=== PATIENT | male | born 1935 | race Two or more races ===

== ENCOUNTER 2023-08-31 22:23 | Inpatient (IN) | payer MEDICARE ==
[~2023-08-31] VITALS: Ht 185.4 cm; Wt 89.8 kg
[2023-08-31 22:23] VITALS: BP 112/74; PULSE 91; RESP 19; TEMP 97
[~2023-08-31 22:23] MED LIST: APIX2.5T PO; ESCI20TA37 PO; FURO80TA3 PO; LIPA1CAP18 PO; METO25TA6 PO; POTA8TAB70 PO; SIMV10TA97 PO; SPIR25TA6 PO; TAMS-11 PO; WARF6TAB48 PO
[2023-08-31] MEDS ORDERED: MAGNESIUM/ALUMINUM HYDROXIDE/SIMETHICONE 30ML UDC PO PRN (23:30)
[2023-08-31] MEDS ORDERED: GUAIFENESIN 200MG/10ML SUGAR FREE UDC PO PRN (23:30)
[2023-08-31] MEDS: SODIUM CHLORIDE 0.9% 1,000 ML IV SCH (23:30)
[2023-08-31] MEDS ORDERED: CLONIDINE 0.1MG TABLET PO PRN (23:30)
[2023-08-31] MEDS ORDERED: IPRATROPIUM/ALBUTEROL 0.5-3(2.5)MG/3ML NEB HHN PRN (23:30)
[2023-09-01] MEDS ORDERED: DEXTROSE 50% WATER 50ML SYRINGE IV PRN ×2 (00:15→07:45)
[2023-09-01] MEDS: CEFTRIAXONE 1GM/50ML 50 ML IV SCH (05:14)
[2023-09-01 06:24] LABS: BASOPHILS % 0.4 % (0.0-2.0); EOSINOPHILS % 3.9 % (0.0-5.0); HEMATOCRIT. 41.4 % (42.0-52.0); LYMPHOCYTES % 14.1 % (20.0-50.0); MEAN CORPUSCULAR HEMOGLOBIN 30.3 pg (28.0-32.0); MEAN CORPUSCULAR HGB CONC 33.8 g/dL (31.0-37.0); MEAN CORPUSCULAR VOLUME 89.7 fL (80.0-94.0); MEAN PLATELET VOLUME 10.1 fl (7.4-10.4); MONOCYTES % 14.6 % (2.0-8.0); PLATELET 140 x1000/uL (130-400); RED BLOOD CELL COUNT 4.61 mill/uL (4.7-6.1); RED CELL DISTRIBUTION WIDTH 15.7 % (11.6-14.6); WHITE BLOOD COUNT 6.8 x1000/uL (4.5-11.0)
[2023-09-01 06:50] LABS: CHLORIDE 108 mEq/L (98-107); POTASSIUM 3.5 mEq/L (3.5-5.1); SODIUM 140 mEq/L (136-145)
[2023-09-01 06:53] LABS: CALCIUM 8.3 mg/dL (8.7-10.4); CARBON DIOXIDE 25 mEq/L (21-32)
[2023-09-01 06:58] LABS: CREATININE 1.6 mg/dL (0.6-1.3); GLUCOSE 114 mg/dL (70-105); UREA NITROGEN BLOOD 13 mg/dL (9-23)
[2023-09-01 06:59] LABS: ALANINE AMINOTRANSFERASE < 7 IU/L (10-49)
[2023-09-01 07:00] LABS: ALBUMIN 2.9 g/dL (3.2-4.8); ASPARTATE AMINOTRANSFERASE 12 IU/L (<34); PREALBUMIN 11.5 mg/dl (10.0-40.0)
[2023-09-01 07:01] LABS: BILIRUBIN TOTAL 0.8 mg/dL (0.1-1.0); PROTEIN TOTAL 4.9 g/dL (6.0-8.3)
[2023-09-01 08:00] VITALS: BP 113/60; PULSE 65; RESP 18; TEMP 97.6
[2023-09-01 08:10] LABS: CLARITY URINE CLEAR (CLEAR); COLOR URINE YELLOW (YELLOW); GLUCOSE URINE NEGATIVE (NEGATIVE); KETONES URINE NEGATIVE (NEGATIVE); LEUKOCYTE ESTERASE URINE 3+ (NEGATIVE); NITRITE URINE NEGATIVE (NEGATIVE); OCCULT BLOOD URINE 3+ (NEGATIVE); PROTEIN URINE 1+ (NEGATIVE); SPECIFIC GRAVITY URINE 1.008 (1.005-1.030); UROBILINOGEN URINE 0.2 E.U./dL (0.2-1.0)
[2023-09-01 08:29] LABS: SQUAMOUS EPITHELIAL CELL URINE NONE SEEN /lpf (RARE/1+)
[2023-09-01 08:31] LABS: BACTERIA URINE TRACE
[2023-09-01 08:32] LABS: RBC URINE 25-50 /hpf (0-2)
[2023-09-01] MEDS: PANTOPRAZOLE SODIUM 40 MG/VIAL IV SCH (08:47)
[2023-09-01] MEDS: POTASSIUM CHLORIDE 20MEQ TABLET SR PO SCH (08:48)
[2023-09-01] MEDS: TAMSULOSIN HCL 0.4MG SR CAPSULE PO SCH (08:48)
[2023-09-01] MEDS: FINASTERIDE 5MG TABLET PO SCH (08:48)
[2023-09-01] MEDS: FUROSEMIDE 40MG TABLET PO SCH (08:48)
[2023-09-01] MEDS: MAGNESIUM OXIDE 400MG TABLET PO SCH (08:48)
[2023-09-01] MEDS: APIXABAN 2.5 MG TABLET PO SCH (08:56)
[2023-09-01] MEDS: ONDANSETRON HCL 4MG/2ML INJ IV PRN (11:10)
[2023-09-01] MEDS: BLOOD SUGAR DIAGNOSTIC STRIP TEST SCH (12:03)
[2023-09-01 14:30] VITALS: BP 97/74; PULSE 70; RESP 19
[2023-09-01 20:00] VITALS: BP 132/77; PULSE 49; RESP 18; TEMP 96.6
[2023-09-01] MEDS ORDERED: PANTOPRAZOLE SODIUM 40 MG/VIAL IV SCH (21:00)
[2023-09-01] MEDS: PANTOPRAZOLE 40MG DR TABLET PO SCH (21:38)
[2023-09-02 06:26] LABS: CHLORIDE 110 mEq/L (98-107); POTASSIUM 3.8 mEq/L (3.5-5.1); SODIUM 142 mEq/L (136-145)
[2023-09-02 06:27] LABS: CALCIUM 8.1 mg/dL (8.7-10.4); CARBON DIOXIDE 26 mEq/L (21-32)
[2023-09-02 06:31] LABS: AMMONIA 34 uMol/L (<32); IRON 42 ug/dL (65-175)
[2023-09-02 06:32] LABS: CREATININE 1.5 mg/dL (0.6-1.3); GLUCOSE 96 mg/dL (70-105); UREA NITROGEN BLOOD 14 mg/dL (9-23)
[2023-09-02 06:33] LABS: PROTEIN TOTAL 4.9 g/dL (6.0-8.3)
[2023-09-02 06:34] LABS: ALANINE AMINOTRANSFERASE < 7 IU/L (10-49); ALBUMIN 3.1 g/dL (3.2-4.8); ASPARTATE AMINOTRANSFERASE 11 IU/L (<34); BILIRUBIN TOTAL 0.6 mg/dL (0.1-1.0); TOTAL IRON BINDING CAPACITY 183 ug/dl (250-425)
[2023-09-02 06:36] LABS: THYROID STIMULATING HORMONE 1.45 uIU/mL (0.55-4.78)
[2023-09-02 06:39] LABS: BASOPHILS % 0.5 % (0.0-2.0); EOSINOPHILS % 4.5 % (0.0-5.0); HEMATOCRIT. 41.3 % (42.0-52.0); HEMOGLOBIN. 13.9 g/dL (14.0-18.0); LYMPHOCYTES % 14.7 % (20.0-50.0); MEAN CORPUSCULAR HEMOGLOBIN 30.5 pg (28.0-32.0); MEAN CORPUSCULAR HGB CONC 33.8 g/dL (31.0-37.0); MEAN CORPUSCULAR VOLUME 90.4 fL (80.0-94.0); MEAN PLATELET VOLUME 10.2 fl (7.4-10.4); MONOCYTES % 12.6 % (2.0-8.0); NEUTROPHILS % 67.7 % (40.0-76.0); PLATELET 128 x1000/uL (130-400); RED BLOOD CELL COUNT 4.57 mill/uL (4.7-6.1); RED CELL DISTRIBUTION WIDTH 15.8 % (11.6-14.6); WHITE BLOOD COUNT 6.1 x1000/uL (4.5-11.0)
[2023-09-02 06:51] LABS: FERRITIN 47 ng/mL (22-322)
[2023-09-02 06:52] LABS: FOLIC ACID (FOLATE) SERUM 6.07 ng/mL (>5.38); VITAMIN B12 SERUM 569 pg/mL (211-911)
[2023-09-02 08:00] VITALS: BP 121/72; PULSE 68; RESP 18; TEMP 97.8
[2023-09-02] MEDS: LACTULOSE 20G/30ML UDC PO SCH (17:21)
[2023-09-02] MEDS: VANCOMYCIN 2,000 MG in DEXT 5% WATER 500 ML IV SCH (19:35)
[2023-09-02 20:00] VITALS: BP 104/68; PULSE 74; RESP 19; TEMP 98
[2023-09-03 06:55] LABS: AMMONIA 27 uMol/L (<32)
[2023-09-03 07:31] LABS: POTASSIUM 3.5 mEq/L (3.5-5.1)
[2023-09-03 07:37] LABS: CREATININE 1.3 mg/dL (0.6-1.3)
[2023-09-03 08:00] VITALS: BP 122/81; PULSE 70; RESP 18; TEMP 97.2
[2023-09-03 15:24] VITALS: PULSE 70; RESP 19
[2023-09-03 20:00] VITALS: BP 114/67; PULSE 83; RESP 19; TEMP 97.3
[2023-09-03] MEDS ORDERED: VANCOMYCIN 1GM/200ML PMX (BAXTER) IV SCH (20:00)
[2023-09-03] MEDS: VANCOMYCIN 1.25GM PMX (XELLIA) 250 ML IV SCH (21:04)
[2023-09-04 08:00] VITALS: BP 113/43; PULSE 68; RESP 20; TEMP 97.7
[2023-09-04 20:00] VITALS: BP 109/64; PULSE 63; RESP 17; TEMP 98.1
[2023-09-05 07:28] LABS: POTASSIUM 3.7 mEq/L (3.5-5.1)
[2023-09-05 07:29] LABS: CALCIUM 8.1 mg/dL (8.7-10.4)
[2023-09-05 07:30] LABS: BASOPHILS % 0.4 % (0.0-2.0); EOSINOPHILS % 3.8 % (0.0-5.0); HEMATOCRIT. 40.7 % (42.0-52.0); HEMOGLOBIN. 13.6 g/dL (14.0-18.0); LYMPHOCYTES % 13.1 % (20.0-50.0); MEAN CORPUSCULAR HEMOGLOBIN 30.4 pg (28.0-32.0); MEAN CORPUSCULAR HGB CONC 33.4 g/dL (31.0-37.0); MEAN CORPUSCULAR VOLUME 90.8 fL (80.0-94.0); MEAN PLATELET VOLUME 10.5 fl (7.4-10.4); MONOCYTES % 12.5 % (2.0-8.0); NEUTROPHILS % 70.2 % (40.0-76.0); PLATELET 123 x1000/uL (130-400); RED BLOOD CELL COUNT 4.49 mill/uL (4.7-6.1); RED CELL DISTRIBUTION WIDTH 15.8 % (11.6-14.6); WHITE BLOOD COUNT 7.4 x1000/uL (4.5-11.0)
[2023-09-05 07:34] LABS: CREATININE 1.4 mg/dL (0.6-1.3)
[2023-09-05 08:00] VITALS: BP 123/76; PULSE 91; RESP 18; TEMP 98.1
[2023-09-05] MEDS: FAMOTIDINE 20MG TABLET PO SCH (08:54)
[2023-09-05 20:00] VITALS: BP 121/64; PULSE 65; RESP 18; TEMP 97.6
[2023-09-05] MEDS: VANCOMYCIN 1G PREMIX 200 ML IV SCH (23:05)
[2023-09-06 08:00] VITALS: BP 129/73; PULSE 56; RESP 19; TEMP 97.9
[2023-09-06] MEDS ORDERED: BUPR200T2 PO (14:25)
[2023-09-06 20:00] VITALS: BP 116/69; PULSE 80; RESP 18; TEMP 97.5
[2023-09-06] MEDS: CITALOPRAM HYDROBROMIDE 10MG TABLET PO SCH (21:56)
[2023-09-07 07:10] LABS: CANCER ANTIGEN 125 25.9 U/mL (Not Estab.); CARCINOEMBRYONIC AG - SEND OUT 2.5 ng/mL (0.0-4.7)
[2023-09-07 07:12] LABS: POTASSIUM 3.6 mEq/L (3.5-5.1)
[2023-09-07 07:14] LABS: CALCIUM 8.3 mg/dL (8.7-10.4)
[2023-09-07 07:19] LABS: CREATININE 1.3 mg/dL (0.6-1.3)
[2023-09-07 08:00] VITALS: BP 139/75; PULSE 73; RESP 20; TEMP 98.1
[2023-09-07] MEDS ORDERED: NON FORMULARY PATIENT HOME MED PO SCH (09:00)
[2023-09-07] MEDS: BUPROPION HCL 100MG SR TABLET PO SCH (09:05)
[2023-09-07] MEDS ORDERED: LACTULOSE 20G/30ML UDC PO PRN (19:30)
[2023-09-07 20:00] VITALS: BP 117/59; PULSE 76; RESP 20; TEMP 98
[2023-09-08 05:51] LABS: CARBON DIOXIDE 27 mEq/L (21-32); CHLORIDE 109 mEq/L (98-107); POTASSIUM 3.7 mEq/L (3.5-5.1); SODIUM 142 mEq/L (136-145)
[2023-09-08 05:52] LABS: CALCIUM 8.2 mg/dL (8.7-10.4)
[2023-09-08 05:55] LABS: AMMONIA < 17 uMol/L (<32)
[2023-09-08 05:56] LABS: CREATININE 1.3 mg/dL (0.6-1.3); GLUCOSE 96 mg/dL (70-105)
[2023-09-08 05:57] LABS: UREA NITROGEN BLOOD 15 mg/dL (9-23)
[2023-09-08 05:59] LABS: ALANINE AMINOTRANSFERASE < 7 IU/L (10-49); ASPARTATE AMINOTRANSFERASE 13 IU/L (<34); BILIRUBIN TOTAL 1.2 mg/dL (0.1-1.0)
[2023-09-08 06:24] LABS: BASOPHILS % 0.5 % (0.0-2.0); EOSINOPHILS % 3.5 % (0.0-5.0); HEMATOCRIT. 41.3 % (42.0-52.0); HEMOGLOBIN. 13.9 g/dL (14.0-18.0); LYMPHOCYTES % 12.9 % (20.0-50.0); MEAN CORPUSCULAR HEMOGLOBIN 30.4 pg (28.0-32.0); MEAN CORPUSCULAR HGB CONC 33.6 g/dL (31.0-37.0); MEAN CORPUSCULAR VOLUME 90.4 fL (80.0-94.0); MEAN PLATELET VOLUME 10.6 fl (7.4-10.4); NEUTROPHILS % 70.1 % (40.0-76.0); PLATELET 127 x1000/uL (130-400); RED BLOOD CELL COUNT 4.56 mill/uL (4.7-6.1); RED CELL DISTRIBUTION WIDTH 15.6 % (11.6-14.6); WHITE BLOOD COUNT 7.6 x1000/uL (4.5-11.0)
[2023-09-08 08:00] VITALS: BP 135/94; PULSE 68; RESP 18; TEMP 97.5
[2023-09-08] MEDS: METOCLOPRAMIDE HCL 10MG/2ML VIAL IV SCH (18:47)
[2023-09-08 20:00] VITALS: BP 112/70; PULSE 76; RESP 20; TEMP 97.7
[2023-09-09 05:25] LABS: AMMONIA < 17 uMol/L (<32)
[2023-09-09 05:27] LABS: CARBON DIOXIDE 27 mEq/L (21-32); CHLORIDE 109 mEq/L (98-107); POTASSIUM 3.7 mEq/L (3.5-5.1); SODIUM 142 mEq/L (136-145)
[2023-09-09 05:28] LABS: CALCIUM 8.2 mg/dL (8.7-10.4)
[2023-09-09 05:29] LABS: BASOPHILS % 0.5 % (0.0-2.0); EOSINOPHILS % 3.8 % (0.0-5.0); HEMOGLOBIN. 13.7 g/dL (14.0-18.0); LYMPHOCYTES % 12.4 % (20.0-50.0); MEAN CORPUSCULAR HEMOGLOBIN 30.4 pg (28.0-32.0); MEAN CORPUSCULAR HGB CONC 33.4 g/dL (31.0-37.0); MEAN PLATELET VOLUME 10.7 fl (7.4-10.4); MONOCYTES % 14.8 % (2.0-8.0); NEUTROPHILS % 68.5 % (40.0-76.0); PLATELET 120 x1000/uL (130-400); RED BLOOD CELL COUNT 4.51 mill/uL (4.7-6.1); RED CELL DISTRIBUTION WIDTH 15.8 % (11.6-14.6); WHITE BLOOD COUNT 7.2 x1000/uL (4.5-11.0)
[2023-09-09 05:33] LABS: ALANINE AMINOTRANSFERASE < 7 IU/L (10-49); CREATININE 1.3 mg/dL (0.6-1.3); GLUCOSE 96 mg/dL (70-105); UREA NITROGEN BLOOD 14 mg/dL (9-23)
[2023-09-09 05:35] LABS: ASPARTATE AMINOTRANSFERASE 11 IU/L (<34); BILIRUBIN TOTAL 1.1 mg/dL (0.1-1.0)
[2023-09-09 08:00] VITALS: BP 133/83; PULSE 76; RESP 18; TEMP 98
[2023-09-09 20:00] VITALS: BP 116/68; PULSE 71; RESP 19; TEMP 97.7
[2023-09-10 06:22] LABS: CHLORIDE 107 mEq/L (98-107); POTASSIUM 3.6 mEq/L (3.5-5.1); SODIUM 140 mEq/L (136-145)
[2023-09-10 06:24] LABS: CALCIUM 8.5 mg/dL (8.7-10.4); CARBON DIOXIDE 25 mEq/L (21-32)
[2023-09-10 06:29] LABS: CREATININE 1.2 mg/dL (0.6-1.3); GLUCOSE 99 mg/dL (70-105); UREA NITROGEN BLOOD 16 mg/dL (9-23)
[2023-09-10 06:30] LABS: AMMONIA 18 uMol/L (<32)
[2023-09-10 06:31] LABS: ALANINE AMINOTRANSFERASE 7 IU/L (10-49); ASPARTATE AMINOTRANSFERASE 10 IU/L (<34); BILIRUBIN TOTAL 1.6 mg/dL (0.1-1.0); PROTEIN TOTAL 5.1 g/dL (6.0-8.3)
[2023-09-10 06:39] LABS: HEMATOCRIT. 41.9 % (42.0-52.0); HEMOGLOBIN. 13.7 g/dL (14.0-18.0); MEAN CORPUSCULAR HGB CONC 32.6 g/dL (31.0-37.0); MEAN CORPUSCULAR VOLUME 92.1 fL (80.0-94.0); MEAN PLATELET VOLUME 10.2 fl (7.4-10.4); PLATELET 122 x1000/uL (130-400); RED BLOOD CELL COUNT 4.55 mill/uL (4.7-6.1); RED CELL DISTRIBUTION WIDTH 16.1 % (11.6-14.6); WHITE BLOOD COUNT 7.5 x1000/uL (4.5-11.0)
[2023-09-10 06:42] LABS: DIFFERENTIAL COMMENT 1
[2023-09-10 08:00] VITALS: BP 133/64; PULSE 116; RESP 18; TEMP 98.2
[2023-09-10 10:00] VITALS: BP 130/61; PULSE 98; RESP 18; TEMP 98
[2023-09-10 11:41] LABS: ANISOCYTOSIS 1+; PLATELET ESTIMATE SLIGHTLY DECREASED
[2023-09-10] MEDS: METOCLOPRAMIDE HCL 10MG/2ML VIAL IV SCH (13:08)
[2023-09-10 16:55] LABS: BG BASE EXCESS 1.1 mmol/L (-2.0-2.0); BG CARBOXYHEMOGLOBIN 1.1 % (0.5-1.5); BG DEOXYHEMOGLOBIN 3.3 % (0.0-5.0); BG FRACTION INSPIRED OXYGEN 21; BG HCO3 ACT 24.1 mmol/L (22.0-26.0); BG METHEMOGLOBIN 0.2 % (0.0-1.5); BG OXYGEN SATURATION 96.7 % (92.0-98.5); BG OXYHEMOGLOBIN 95.4 % (94.0-97.0); BG PCO2 33.7 mmHg (35.0-45.0); BG PH 7.472 (7.350-7.450); BG SAMPLE SITE RIGHT BRACHIAL; BG TOTAL HEMOGLOBIN 14.6 g/dL (12.0-18.0); BG VENT MODE ROOM AIR
[2023-09-10 17:26] VITALS: PULSE 101; RESP 20; O2SAT 96
[2023-09-10] MEDS: IPRATROPIUM/ALBUTEROL 0.5-3(2.5)MG/3ML NEB HHN PRN (17:26)
[2023-09-10] MEDS: FUROSEMIDE 40MG/4ML VIAL IVP NR (18:51)
[2023-09-10 20:00] VITALS: BP 121/82; PULSE 89; RESP 18; TEMP 96.9
[2023-09-11 06:48] LABS: CHLORIDE 107 mEq/L (98-107); HEMATOCRIT 42.4 % (42.0-52.0); HEMOGLOBIN 13.9 g/dL (14.0-18.0); MEAN CORPUSCULAR HEMOGLOBIN 30.3 pg (28.0-32.0); MEAN CORPUSCULAR HGB CONC 32.9 g/dL (31.0-37.0); MEAN CORPUSCULAR VOLUME 92.1 fL (80.0-94.0); PLATELET 130 x1000/uL (130-400); POTASSIUM 3.7 mEq/L (3.5-5.1); RED BLOOD CELL COUNT 4.61 mill/uL (4.7-6.1); RED CELL DISTRIBUTION WIDTH 15.8 % (11.6-14.6); SODIUM 142 mEq/L (136-145)
[2023-09-11 06:49] LABS: CALCIUM 8.6 mg/dL (8.7-10.4); CARBON DIOXIDE 24 mEq/L (21-32)
[2023-09-11 06:52] LABS: INR 1.2; PROTHROMBIN TIME 13.5 sec (9.6-11.0)
[2023-09-11 06:54] LABS: CREATININE 1.4 mg/dL (0.6-1.3); GLUCOSE 108 mg/dL (70-105); UREA NITROGEN BLOOD 15 mg/dL (9-23)
[2023-09-11 06:56] LABS: PHOSPHORUS 3.1 mg/dL (2.5-4.9)
[2023-09-11 07:39] LABS: CREATINE KINASE < 15 IU/L (46-171); TROPONIN I HIGH SENSITIVITY < 4 ng/L (3.0-53)
[2023-09-11 08:00] VITALS: BP 111/78; PULSE 85; RESP 20; TEMP 98.3
[2023-09-11] MEDS: ACETAMINOPHEN 325MG TABLET PO PRN (09:13)
[2023-09-11] MEDS: DILTIAZEM HCL 30MG TABLET PO SCH (12:00)
[2023-09-11] MEDS: PANTOPRAZOLE SODIUM 40 MG/VIAL IV SCH (13:51)
[2023-09-11] MEDS: SUCRALFATE 1G TABLET PO SCH (17:24)
[2023-09-11 17:30] VITALS: BP 137/74; PULSE 94
[2023-09-11 20:00] VITALS: BP 106/60; PULSE 80; RESP 17; TEMP 97
[2023-09-12 08:00] VITALS: BP 121/85; PULSE 114; RESP 19; TEMP 97.3
[2023-09-12 08:06] LABS: HEMATOCRIT. 40.4 % (42.0-52.0); MEAN CORPUSCULAR HEMOGLOBIN 29.7 pg (28.0-32.0); MEAN CORPUSCULAR HGB CONC 32.2 g/dL (31.0-37.0); MEAN CORPUSCULAR VOLUME 92.2 fL (80.0-94.0); MEAN PLATELET VOLUME 11.4 fl (7.4-10.4); PLATELET 121 x1000/uL (130-400); RED BLOOD CELL COUNT 4.38 mill/uL (4.7-6.1); WHITE BLOOD COUNT 8.1 x1000/uL (4.5-11.0)
[2023-09-12 08:19] LABS: DIFFERENTIAL COMMENT 1
[2023-09-12 08:25] LABS: CARBON DIOXIDE 24 mEq/L (21-32); CHLORIDE 106 mEq/L (98-107); POTASSIUM 3.8 mEq/L (3.5-5.1); SODIUM 140 mEq/L (136-145)
[2023-09-12 08:26] LABS: CALCIUM 8.6 mg/dL (8.7-10.4)
[2023-09-12 08:31] LABS: CREATININE 1.5 mg/dL (0.6-1.3); GLUCOSE 81 mg/dL (70-105); UREA NITROGEN BLOOD 17 mg/dL (9-23)
[2023-09-12 11:39] LABS: ANISOCYTOSIS 1+; PLATELET ESTIMATE SLIGHTLY DECREASED
[2023-09-12] MEDS ORDERED: FAMO-135 MT (11:49)
[2023-09-12] MEDS ORDERED: APIX2.5T PO (11:49)
[2023-09-12] MEDS ORDERED: DILT120C88 MT (11:49)
[2023-09-12] MEDS ORDERED: FURO40TA5 PO (11:49)
[2023-09-12 20:00] VITALS: BP 111/52; PULSE 81; RESP 18; TEMP 98.2
[2023-09-13 06:00] VITALS: BP 133/77; PULSE 110; RESP 19; TEMP 98.5
[2023-09-13 20:00] VITALS: BP 14/69; PULSE 105; RESP 18; TEMP 97.7
[2023-09-14 08:00] VITALS: BP 118/73; PULSE 84; RESP 20; TEMP 98.3
[2023-09-14 19:51] LABS: CLARITY URINE CLEAR (CLEAR); COLOR URINE YELLOW (YELLOW); GLUCOSE URINE NEGATIVE (NEGATIVE); KETONES URINE NEGATIVE (NEGATIVE); LEUKOCYTE ESTERASE URINE TRACE (NEGATIVE); NITRITE URINE NEGATIVE (NEGATIVE); OCCULT BLOOD URINE 1+ (NEGATIVE); PH URINE 7.5 (4.5-8.0); PROTEIN URINE NEGATIVE (NEGATIVE); SPECIFIC GRAVITY URINE 1.009 (1.005-1.030); UROBILINOGEN URINE 0.2 E.U./dL (0.2-1.0)
[2023-09-14 20:00] VITALS: BP 123/73; PULSE 84; RESP 20; TEMP 97.7
[2023-09-14 20:10] LABS: BACTERIA URINE TRACE; SQUAMOUS EPITHELIAL CELL URINE RARE /lpf (RARE/1+); WBC URINE 0-2 /hpf (0-2)
[2023-09-15 08:00] VITALS: BP 118/86; PULSE 80; RESP 18; TEMP 98.4
[2023-09-15 20:00] VITALS: BP 114/76; PULSE 76; RESP 18; TEMP 97.9
[2023-09-16 07:59] VITALS: BP 127/58; PULSE 101; RESP 23; TEMP 97.9
[2023-09-16 14:59] VITALS: BP 130/61; PULSE 90; TEMP 98.2; O2SAT 96
== END 2023-09-16 16:38 | disposition home health service (06) | DRG 70 ==
PROVIDERS: ADMIT Physical Medicine & Rehabilitation Spinal Cord Injury Medicine; ATTEND Hospitalist
DX: G93.41 Metabolic encephalopathy (principal); A41.89 Other specified sepsis; T83.518A Infection and inflammatory reaction due to other urinary catheter, initial encounter; D68.59 Other primary thrombophilia; N17.9 Acute kidney failure, unspecified; N39.0 Urinary tract infection, site not specified; I48.20 Chronic atrial fibrillation, unspecified; I42.9 Cardiomyopathy, unspecified; R17 Unspecified jaundice; F84.0 Autistic disorder; F33.1 Major depressive disorder, recurrent, moderate; I50.22 Chronic systolic (congestive) heart failure; E46 Unspecified protein-calorie malnutrition; E72.20 Disorder of urea cycle metabolism, unspecified; E78.5 Hyperlipidemia, unspecified; E87.6 Hypokalemia; E55.9 Vitamin D deficiency, unspecified; N40.1 Benign prostatic hyperplasia with lower urinary tract symptoms; F06.34 Mood disorder due to known physiological condition with mixed features; G47.33 Obstructive sleep apnea (adult) (pediatric); E88.09 Other disorders of plasma-protein metabolism, not elsewhere classified; N32.3 Diverticulum of bladder; J98.8 Other specified respiratory disorders; S41.111A Laceration without foreign body of right upper arm, initial encounter; X58.XXXA Exposure to other specified factors, initial encounter; Y83.8 Other surgical procedures as the cause of abnormal reaction of the patient, or of later complication, without mention of misadventure at the time of the procedure; R33.9 Retention of urine, unspecified; I50.9 Heart failure, unspecified; N13.9 Obstructive and reflux uropathy, unspecified; R06.03 Acute respiratory distress; R11.2 Nausea with vomiting, unspecified; R19.7 Diarrhea, unspecified; R26.9 Unspecified abnormalities of gait and mobility; I11.0 Hypertensive heart disease with heart failure; Z79.01 Long term (current) use of anticoagulants; Y92.89 Other specified places as the place of occurrence of the external cause; Z90.5 Acquired absence of kidney; Z91.81 History of falling; Z87.440 Personal history of urinary (tract) infections; Z85.528 Personal history of other malignant neoplasm of kidney; Z82.49 Family history of ischemic heart disease and other diseases of the circulatory system; Y93.89 Activity, other specified; Y99.8 Other external cause status; Z79.899 Other long term (current) drug therapy
CPT/HCPCS: 36415; 36600; 71045; 73030; 73060; 73080; 73521; 74176; 80048; 80053; 80202; 81003; 82140; 82306; 82375; 82378; 82550; 82607; 82728; 82746; 82805; 82962; 83036; 83540; 83550; 83735; 83880; 84100; 84134; 84145; 84443; 84484; 85025; 85027; 85379; 86304; 92523; 93005; 94640; 97110; 97112; 97116; 97150; 97162; 97167; 97530; 97535; 97542; A6261; C9113; J0696; J1940; J2405; J2765; J3370; J7030; J7060